=== PATIENT | male | born 1985 | race Caucasian/White ===

== ENCOUNTER 2019-03-22 12:05 | Emergency (ER) | payer MEDICAID, SELFPAY ==
[2019-03-22] MEDS ORDERED: Glycopyrrolate 0.4 MG/ 2 ML VIAL ONE (12:27)
[2019-03-22] MEDS ORDERED: Famotidine In NaCl 20 mg/50 ml Premix Bag ONE (12:27)
[2019-03-22] MEDS ORDERED: Ondansetron PF 4 MG/2 ML Vial ONE ×2 (12:27→12:51)
[2019-03-22 12:41] LABS: #Basophils 0.1 thou/uL (0.0-0.2); #Eosinphils 0.1 thou/uL (0.0-0.7); #Lymphocytes 1.4 thou/uL (1.20-3.40); #Monocytes 0.8 thou/uL (0.11-0.59); #Neutrophils 5.4 thou/uL (1.40-6.50); %Basophils 0.9 % (0.0-1.0); %Eosinophils 1.8 % (0.0-10.0); %Lymphocytes 18.2 % (21.0-51.0); %Monocytes 10.4 % (0.0-10.0); %Neutrophils 68.6 % (42.0-75.0); Hemoglobin 16.3 g/dL (14.0-18.0); Mean Corpuscular HGB CONC 31.7 g/dL (32.0-36.0); Mean Corpuscular Hemoglobin 31.3 pg (27.0-31.0); Platelet Count 277 thou/uL (130-400); RBC Distribution Width 12.4 % (11.5-14.5); White Blood Cell (WBC) Count 7.8 thou/uL (4.8-10.8)
[2019-03-22 12:56] LABS: ALT (SGPT) 19 U/L (8-55); AST (SGOT) 27 U/L (5-34); Albumin 4.1 g/dL (3.5-5.0); Alkaline Phosphatase 54 U/L (40-150); Anion Gap 14 mmol/L (10-20); BUN (Urea Nitrogen) 6 mg/dL (8.9-20.6); Bilirubin, Total 0.8 mg/dL (0.2-1.2); Calc. Creatinine Clearance 0 mL/min (70-130); Calcium 9.3 mg/dL (7.8-10.44); Carbon Dioxide 27 mmol/L (22-29); Chloride 104 mmol/L (98-107); Estimated GFR-MDRD Greater than 90; Globulin 2.3 g/dL (2.4-3.5); Glucose 107 mg/dL (70-105); Lipase 15 U/L (8-78); Potassium 3.5 mmol/L (3.5-5.1); Protein, Total 6.4 g/dL (6.0-8.3); Sodium 141 mmol/L (136-145)
== END 2019-03-22 14:00 | disposition home or self-care (01) ==
LOC: BURERS 12:05
DX: R11.2 Nausea with vomiting, unspecified (principal); F17.210 Nicotine dependence, cigarettes, uncomplicated
CPT/HCPCS: 80053; 83690; 85025; J2405

== ENCOUNTER 2019-10-28 04:18 | Emergency (ER) | payer SELFPAY ==
[2019-10-28] MEDS ORDERED: Fluorescein Opthalmic Strip ONE (04:24)
[2019-10-28] MEDS ORDERED: Tetracaine 0.5% OPHTH SOLN/PF 4 ML BOT ONE (04:24)
[2019-10-28] MEDS ORDERED: Gentamicin Ophth Soln 0.3% 5 ml Bottle ONE (05:10)
== END 2019-10-28 05:11 | disposition home or self-care (01) ==
LOC: BURERS 04:18
DX: T15.02XA Foreign body in cornea, left eye, initial encounter (principal); F17.220 Nicotine dependence, chewing tobacco, uncomplicated
CPT/HCPCS: 65222